=== PATIENT | female | born 1940 | race Caucasian/White ===

== ENCOUNTER 2022-05-21 01:44 | Observation (INO) ==
[2022-05-21 02:16] LABS: ABS Lymphocytes 0.5 10^3/ul (1.0-4.8); ABS Monocytes 0.2 10^3/ul (0-0.8); ABS Neutrophils 5.4 10^3/ul (1.5-7.7); Eosinophil % 0.2 %; Hematocrit 40 % (35-47); Hemoglobin 13.5 g/dL (12.0-16.0); Lymphocyte % 8.5 %; Mean Corpuscular HGB Conc 34 g/dL (31-36); Mean Corpuscular Hemoglobin 29 pg (27-31); Mean Corpuscular Volume 86 fL (80-97); Mean Platelet Volume 8.6 fL (7.4-10.4); Platelet Count 192 10^3/uL (150-450); Red Blood Count 4.65 10^6 /uL (3.70-4.87); Red Cell Distribution Width 14 % (10-15); White Blood Count 6.1 10^3/uL (3.5-10.8)
[2022-05-21 02:20] LABS: INR 0.95 (0.88-1.18)
[2022-05-21 02:56] LABS: Albumin 4.6 g/dL (3.2-5.2); Creatinine, Serum 0.81 mg/dL (0.51-0.95); Globulin 2.3 g/dL (2-4); Magnesium 1.9 mg/dL (1.9-2.7); Total Bilirubin 0.5 mg/dL (0.2-1.0); Total Protein 6.9 g/dL (6.4-8.9)
[2022-05-21 03:10] LABS: TSH Ultra Thyroid Stim Horm 0.66 mcIU/mL (0.34-5.60)
[2022-05-21 03:40] LABS: Erythrocyte Sed Rate 14 mm/Hr (0-29)
[2022-05-21] MEDS ORDERED: Iodixanol (CONTRAST) 320 MG/ML 100 ML SDV IV ONE (04:28)
[2022-05-21 05:11] LABS: High Sensitivity Troponin 1 Hr 16 pg/mL (<15)
[2022-05-21 09:40] LABS: C Reactive Protein 1.91 mg/L (<8.01)
[2022-05-21 09:54] LABS: HDL Cholesterol 101.6 mg/dL
[2022-05-21] MEDS ORDERED: Albuterol HFA INHALER 8 gm MDI INH PRN (10:23)
[2022-05-21 14:26] LABS: Free T4 0.84 ng/dL (0.61-1.12)
[2022-05-21] MEDS ORDERED: Regadenoson 0.4 MG/5 ML SYRINGE ONE (15:10)
[2022-05-21] MEDS ORDERED: Ondansetron 4 mg VIAL 2 MG/ML 2 ml VIAL ONE (15:10)
[2022-05-21 18:28] VITALS: BP 123/99
[2022-05-21] MEDS ORDERED: Enoxaparin 40 MG/0.4 ML SYR SUBCUT SCH (21:00)
[2022-05-21] MEDS ORDERED: NF: Azelastine/Fluticasone 137-50 MCG BTL (NF) BOTH NARES SCH (21:00)
[2022-05-22] MEDS ORDERED: Cholecalciferol (VIT D3) 1,000 unit TAB PO SCH (09:00)
[2022-05-22] MEDS ORDERED: CMCS: OMEGA-3 FATTY ACID 1000 mg(NF) PO SCH (09:00)
== END 2022-05-21 18:30 | disposition home or self-care (01) ==
LOC: EDHOLD 01:44 → ED 01:44 → EDHOLD 17:30
PROVIDERS: ADMIT Internal Medicine; ATTEND Internal Medicine

== ENCOUNTER 2022-12-15 10:24 | Observation (INO) ==
[~2022-12-15 10:24] MED LIST: BUPIVACAINE **LIPOSOME/PF 13.3 MG/ML (266MG/ 20ML) VIAL (RESTRICTED) INFIL ONE; Buffered Lidocaine 1% SYRIN 1 ml INTRADERM ONE; Buffered Lidocaine 1% SYRIN 1 ml ONE; Lactated Ringers 1000 ml BAG 1,000 ML IV SCH; Meperidine 50 mg/ml SYRINGE 1 ml IV ONE; Naloxone 0.4 mg VIAL 0.4 mg/ml 1 ml VIAL IV PRN; Prochlorperazine 5 mg/ml 2 ml VIAL (10 mg) IV PRN; ceFAZolin 2 GM PREMIX 2 GM/50 ML BAG ONE; fentaNYL 100 mcg/2 ml 50 MCG/ML VIAL IV PRN
[2022-12-15 10:33] LABS: Rapid COVID-19 Molecular Undetected (Undetected)
[2022-12-15] MEDS ORDERED: fentaNYL 100 mcg/2 ml 50 MCG/ML VIAL ONE (10:41)
[2022-12-15] MEDS ORDERED: Phenylephrine IV 10 MG/ML 1 ml VIAL ONE (10:42)
[2022-12-15] MEDS ORDERED: Lidocaine 2% PF 5 ML VIAL ONE (10:43)
[2022-12-15] MEDS ORDERED: Propofol 10 MG/ML 20 ML BTL ONE (10:43)
[2022-12-15] MEDS ORDERED: Bupivacaine 0.25% SDV 30 ML ONE (11:32)
[2022-12-15] MEDS ORDERED: Midazolam 2 mg/2 ml VIAL 1 mg/ml 2 ml VIAL (2 mg) ONE (12:30)
[2022-12-15] MEDS ORDERED: Glycopyrrolate IV 0.2 MG/ML 1 ML VIAL ONE (12:56)
[2022-12-15] MEDS ORDERED: Magnesium Hydroxide LIQ 30 ML UDC PO PRN (15:12)
[2022-12-15] MEDS ORDERED: Lactulose 30 ml UDC PO PRN (15:12)
[2022-12-15] MEDS ORDERED: Ondansetron 4 mg VIAL 2 MG/ML 2 ml VIAL IV PRN (15:12)
[2022-12-15] MEDS ORDERED: Ondansetron ODT 4 mg TAB 4 MG TAB PO PRN (15:12)
[2022-12-15] MEDS ORDERED: Albuterol HFA INHALER 8 gm MDI INH PRN (16:05)
[2022-12-15] MEDS: Lactated Ringers 1000 ml BAG 1,000 ML IV SCH (16:31)
[2022-12-15] MEDS ORDERED: LACTATED RINGERS 1000 ML/HR *Bolus IV ONE (19:00)
[2022-12-15] MEDS: Magnesium Hydroxide LIQ 30 ML UDC PO SCH (20:44)
[2022-12-15] MEDS: ceFAZolin 1 GM ADVAN 1 GM in NS 0.9% 50 ML 50 ML IVPB SCH (20:44)
[2022-12-16] MEDS: ceFAZolin 1 GM ADVAN 1 GM in NS 0.9% 50 ML 50 ML IVPB SCH ×2 (04:53→13:10)
[2022-12-16] MEDS: Lactated Ringers 1000 ml BAG 1,000 ML IV SCH (05:13)
[2022-12-16 06:53] LABS: Hemoglobin 11.1 g/dL (11.5-14.3); Mean Platelet Volume 8.6 fL (7.5-11.2); Platelet Count 158 10^3/uL (150-450)
[2022-12-16 07:07] LABS: Calcium 8.3 mg/dL (8.6-10.3); Creatinine, Serum 0.92 mg/dL (0.51-0.95); Potassium 4.1 mmol/L (3.5-5.0); eGFR CKD-EPI 61.8 (>60)
[2022-12-16] MEDS: Vitamin THERAPEUTIC TAB PO SCH (07:23)
[2022-12-16] MEDS: Magnesium Hydroxide LIQ 30 ML UDC PO SCH ×2 (07:23→21:30)
[2022-12-17 06:49] LABS: Hematocrit 33.9 % (35-45); Hemoglobin 11.6 g/dL (11.5-14.3); Mean Platelet Volume 8.7 fL (7.5-11.2); Platelet Count 187 10^3/uL (150-450)
[2022-12-17] MEDS: Magnesium Hydroxide LIQ 30 ML UDC PO SCH (09:08)
[2022-12-17] MEDS: Vitamin THERAPEUTIC TAB PO SCH (09:09)
[2022-12-17 14:56] VITALS: BP 129/81
== END 2022-12-17 16:25 | disposition home or self-care (01) ==
LOC: SSU 10:24 → OR 10:24
PROVIDERS: ADMIT Orthopaedic Surgery Sports Medicine; ATTEND Orthopaedic Surgery Sports Medicine